=== PATIENT | male | born 1985 | race Hispanic/Latino ===

== ENCOUNTER 2024-05-11 17:39 | Emergency (ER) | payer SELFPAY ==
[~2024-05-11] VITALS: Ht 167.6 cm; Wt 69.9 kg
[2024-05-11] MEDS ORDERED: CEFTRIAXONE SOD 1,000 MG/10 ML VIAL IM ONE (18:15)
[2024-05-11] MEDS ORDERED: AZITHROMYCIN 250 MG TAB PO ONE (18:15)
[2024-05-11 18:50] VITALS: BP 145/80
[2024-05-11 19:43] LABS: N. GONORRRHOEAE BY PCR DETECTED (NOT DETECT)
== END 2024-05-11 18:50 | disposition home or self-care (01) ==
LOC: ED 17:39
PROVIDERS: Emergency Medicine
DX: A64 Unspecified sexually transmitted disease (principal)
CPT/HCPCS: 96372; 99283; J0696